=== PATIENT | male | born 1995 | race Hispanic/Latino ===

== ENCOUNTER 2018-05-21 16:05 | Emergency (ER) | payer OTHER ==
[~2018-05-21] VITALS: Ht 170.2 cm; Wt 72.7 kg
[2018-05-21] MEDS ORDERED: ADDE1TAB14 PO (16:13)
[2018-05-21] MEDS ORDERED: WELLTAB38 PO (16:13)
[2018-05-21] MEDS ORDERED: LORazepam 2 MG TAB PO STA (16:21)
[2018-05-21 17:00] LABS: AMPHETAMINES LEVEL URINE NEGATIVE (NEGATIVE); BARBITURATES URINE NEGATIVE (NEGATIVE); BENZODIAZEPINES URINE NEGATIVE (NEGATIVE); CANNABINOIDS URINE NEGATIVE (NEGATIVE); COCAINE METABOLITE URINE NEGATIVE (NEGATIVE); METHADONE URINE NEGATIVE (NEGATIVE); OPIATES URINE NEGATIVE (NEGATIVE); PHENCYCLIDINE URINE NEGATIVE (NEGATIVE)
[2018-05-21] MEDS ORDERED: XANA0.25 PO ×2 (17:12→17:16)
[2018-05-21 17:13] VITALS: BP 132/90
--- NOTE | 2018-05-21 20:12 | ECGEPIP ---
Stationary ECG Study [facility] - ED Test Date: 2018-05-21 Pat Name: ROSA LEE Department: Room: - Gender: M Online Journalist: TC : 1995 Requested By: MOJGAN VALDIVIA Order Number: [id number] Reading MD: Angeline Mead Measurements Intervals [place] Rate: 105 P: 70 LA: 136 QRS: 4 QRSD: 106 T: 34 QT: 322 QTc: 426 Interpretive Statements SINUS TACHYCARDIA POSSIBLE LEFT ATRIAL ENLARGEMENT INCOMPLETE RIGHT BUNDLE BRANCH BLOCK ABNORMAL RHYTHM ECG NO PRIOR FOR COMPARISON Electronically Signed On 05-21-2018 20:11:46 EST by Angeline Mead
== END 2018-05-21 17:36 | disposition home or self-care (01) ==
LOC: M ED 16:05
DX: F41.9 Anxiety disorder, unspecified (principal); Z79.899 Other long term (current) drug therapy